=== PATIENT | female | born 1945 | race Two or more races ===

== ENCOUNTER 2020-05-16 10:55 | Observation (INO) | payer OTHER ==
[2020-05-16] MEDS ORDERED: SODIUM CHLORIDE 0.9% 1000 ML INFUS.BAG IV ONE (12:49)
[2020-05-16] MEDS ORDERED: METOCLOPRAMIDE HCL INJECTION 10 MG/2 ML VIAL IVPB ONE (12:49)
[2020-05-16] MEDS ORDERED: METOCLOPRAMIDE HCL INJECTION 10 MG/2 ML VIAL ONE (13:35)
[2020-05-16 13:58] LABS: INR 3.63 (0.83-1.09)
[2020-05-16 14:00] LABS: ACTIVATED PTT 41.2 SECONDS (25.2-36.5)
[2020-05-16 14:20] LABS: CHOLESTEROL 172 mg/dL (50-200)
[2020-05-16 14:21] LABS: TRIGLYCERIDES 222 mg/dL (0-150)
[2020-05-16 14:22] LABS: LDL CHOLESTEROL (ONLY SJRH) 90 mg/dL (5-100)
[2020-05-16 14:23] LABS: HDL CHOLESTEROL 55 mg/dL (40-60)
[2020-05-16] MEDS ORDERED: ASPIRIN 81 MG CHEWABLE TABLETS PO ONE (14:34)
[2020-05-16] MEDS ORDERED: ASPIRIN 325 MG ENTERIC COATED TABLET (FP) ONE (14:55)
[2020-05-16] MEDS ORDERED: ALBUTEROL SO4 HFA INHALER IH PRN (16:04)
[2020-05-16 17:05] LABS: CHLORIDE 106 mmol/L (98-107); POTASSIUM 4.3 mmol/L (3.5-5.1); SODIUM 141 mmol/L (136-145)
[2020-05-16 17:07] LABS: ANION GAP 8 MMOL/L (8-16); BLOOD UREA NITROGEN 30.5 mg/dL (7-18); CALCIUM 9.3 mg/dL (8.5-10.1); CO2 26 mmol/L (21-32)
[2020-05-16 17:08] LABS: ALBUMIN 3.6 g/dl (3.4-5.0); GLUCOSE,RANDOM 113 mg/dL (74-106)
[2020-05-16 17:11] LABS: CREATININE 1.5 mg/dL (0.55-1.3); SGOT/AST 17 U/L (15-37); SGPT/ALT 25 U/L (13-61)
[2020-05-16] MEDS ORDERED: MAGNESIUM SULF 50% (8.12 MEQ/2 ML-1 GM VIAL) IVPB ONE (17:11)
[2020-05-16 17:12] LABS: BILIRUBIN,TOTAL 0.4 mg/dL (0.2-1); TOT PROT 7.1 g/dl (6.4-8.2)
[2020-05-16 17:13] LABS: ALK PHOS 115 U/L (45-117)
[2020-05-16] MEDS ORDERED: MAGNESIUM SULFATE IN WATER 2 GM/50 ML IVPB IVPB ONE ×2 (17:15→18:15)
[2020-05-16 18:10] LABS: BASO % 0.6 % (0-2.0); EOS % 1.4 % (0-4.5); HEMATOCRIT 35.4 % (32.4-45.2); HEMOGLOBIN 11.9 GM/dL (10.7-15.3); LYMPH % 14.6 % (8-40); MCH 29.7 pg (25.7-33.7); MCHC 33.7 g/dl (32.0-36.0); MEAN CELL VOLUME 88.1 fl (80-96); MEAN PLT VOLUME 8.3 fl (7.5-11.1); MONO % 7.1 % (3.8-10.2); NEUT % 76.3 % (42.8-82.8); PLATELET COUNT 253 K/MM3 (134-434); RBC 4.01 M/mm3 (3.60-5.2); RDW 14.2 % (11.6-15.6); WHITE BLOOD COUNT 5.9 K/mm3 (4.0-10.0)
[2020-05-16 19:53] LABS: ERYTHROCYTE SEDIMENTATION RATE 26 mm/hr (0-30)
[2020-05-16] MEDS ORDERED: ATORVASTATIN CA 40 MG TABLET (FP) PO SCH (22:00)
[2020-05-16] MEDS ORDERED: HEPARIN NA (PORCINE) 5,000 UNITS/ML 1ML VIAL SQ SCH (22:00)
[2020-05-16] MEDS ORDERED: ATORVASTATIN CA 80 MG TABLET (FP) PO SCH (22:00)
[2020-05-17] MEDS: MONTELUKAST NA 10 MG TABLET PO SCH ×2 (00:25→21:02)
[2020-05-17] MEDS: BUDESONIDE/FORMETEROL FUMARATE 80/4.5 mcg INHALER IH SCH ×3 (01:38→21:02)
[2020-05-17] MEDS: BRIMONIDINE TARTRATE 0.2% OPHTHALMIC 5 ML BOTTLE OD SCH ×3 (01:38→21:02)
[2020-05-17 05:11] VITALS: BMI 30.4
[2020-05-17 07:06] LABS: INR 3.62 (0.83-1.09); PROTHROMBIN TIME (PATIENT) 42.9 SEC (9.7-13.0)
[2020-05-17 07:13] LABS: CHLORIDE 110 mmol/L (98-107); POTASSIUM 4.1 mmol/L (3.5-5.1); SODIUM 142 mmol/L (136-145)
[2020-05-17 07:16] LABS: CALCIUM 8.8 mg/dL (8.5-10.1)
[2020-05-17 07:17] LABS: ALBUMIN 3.1 g/dl (3.4-5.0); ANION GAP 6 MMOL/L (8-16); BLOOD UREA NITROGEN 29.3 mg/dL (7-18); CO2 26 mmol/L (21-32); GLUCOSE,RANDOM 102 mg/dL (74-106); MAGNESIUM 2.9 mg/dL (1.8-2.4)
[2020-05-17 07:20] LABS: PHOSPHOROUS 3.9 mg/dL (2.5-4.9); SGOT/AST 15 U/L (15-37); SGPT/ALT 20 U/L (13-61)
[2020-05-17 07:21] LABS: BILIRUBIN,TOTAL 0.4 mg/dL (0.2-1)
[2020-05-17 07:22] LABS: TOT PROT 6.1 g/dl (6.4-8.2)
[2020-05-17 07:23] LABS: ALK PHOS 104 U/L (45-117)
[2020-05-17 07:42] LABS: BASO % 0.6 % (0-2.0); EOS % 1.5 % (0-4.5); HEMATOCRIT 35.3 % (32.4-45.2); HEMOGLOBIN 11.7 GM/dL (10.7-15.3); LYMPH % 14.4 % (8-40); MCH 28.9 pg (25.7-33.7); MEAN CELL VOLUME 87.6 fl (80-96); MEAN PLT VOLUME 7.9 fl (7.5-11.1); MONO % 8.6 % (3.8-10.2); NEUT % 74.9 % (42.8-82.8); PLATELET COUNT 243 K/MM3 (134-434); RBC 4.03 M/mm3 (3.60-5.2); RDW 14.5 % (11.6-15.6); WHITE BLOOD COUNT 6.4 K/mm3 (4.0-10.0)
[2020-05-17 08:23] LABS: CREATININE 1.2 mg/dL (0.55-1.3)
[2020-05-17 08:25] LABS: CHOLESTEROL 152 mg/dL (50-200); TRIGLYCERIDES 222 mg/dL (0-150)
[2020-05-17 08:26] LABS: LDL CHOLESTEROL (ONLY SJRH) 75 mg/dL (5-100)
[2020-05-17 08:28] LABS: HDL CHOLESTEROL 46 mg/dL (40-60)
[2020-05-17 08:35] LABS: EPI CELLS 9 /uL (0-25.1); HYALINE CASTS 0 /uL (0-3.1); PH,URINE 5.5 (5.0-8.0); URINE APPEARANCE CLEAR; URINE BACTERIA 424 /uL (0-1359); URINE BILIRUBIN NEGATIVE (NEGATIVE); URINE COLOR YELLOW; URINE GLUCOSE (UA) NEGATIVE (NEGATIVE); URINE KETONE NEGATIVE (NEGATIVE); URINE LEUK ESTERASE NEGATIVE (NEGATIVE); URINE NITRITE NEGATIVE (NEGATIVE); URINE PROTEIN NEGATIVE (NEGATIVE); URINE RBC 4 /uL (0-23.9); URINE UROBILINOGEN 0.2 mg/dL (0.2-1.0); URINE WBC 34 /uL (0-25.8)
[2020-05-17] MEDS: ASPIRIN COATED 81 MG TABLET.EC PO SCH (10:05)
[2020-05-17] MEDS: CHOLECALCIFEROL (VIT D3) 1,000 UNIT (25 MCG) TABLET PO SCH (10:05)
[2020-05-17] MEDS: PANTOPRAZOLE 40 MG TABLET PO SCH (10:05)
[2020-05-17] MEDS: ACETAMINOPHEN 325 MG TABLET (FP) PO PRN ×2 (10:05→17:44)
[2020-05-17] MEDS ORDERED: FUROSEMIDE 40 MG TABLET (FP) PO SCH (14:00)
[2020-05-17] MEDS: TIOTROPIUM BROMIDE 2.5 MCG (SPIRIVA) RESPIMAT INHALER IH SCH (17:48)
[2020-05-17] MEDS ORDERED: PT OWN MED DRAWER 7, Y5N ONE (20:58)
[2020-05-17] MEDS: CARVEDILOL 12.5 MG TABLET (FP) PO SCH (21:02)
[2020-05-17] MEDS ORDERED: ATORVASTATIN CA 40 MG TABLET (FP) PO SCH (22:00)
[2020-05-18 06:55] LABS: BASO % 0.7 % (0-2.0); EOS % 2.3 % (0-4.5); HEMATOCRIT 33.3 % (32.4-45.2); HEMOGLOBIN 11.1 GM/dL (10.7-15.3); LYMPH % 16.5 % (8-40); MCH 29.4 pg (25.7-33.7); MCHC 33.4 g/dl (32.0-36.0); MONO % 8.8 % (3.8-10.2); NEUT % 71.7 % (42.8-82.8); PLATELET COUNT 239 K/MM3 (134-434); RBC 3.79 M/mm3 (3.60-5.2); RDW 14.7 % (11.6-15.6); WHITE BLOOD COUNT 5.1 K/mm3 (4.0-10.0)
[2020-05-18 06:57] LABS: INR 2.66 (0.83-1.09); PROTHROMBIN TIME (PATIENT) 31.3 SEC (9.7-13.0)
[2020-05-18 07:10] LABS: POTASSIUM 4.1 mmol/L (3.5-5.1)
[2020-05-18 07:15] LABS: ALBUMIN 2.9 g/dl (3.4-5.0); BLOOD UREA NITROGEN 25.3 mg/dL (7-18); MAGNESIUM 2.4 mg/dL (1.8-2.4)
[2020-05-18 07:17] LABS: CALCIUM 8.7 mg/dL (8.5-10.1)
[2020-05-18 07:18] LABS: CREATININE 1.3 mg/dL (0.55-1.3)
[2020-05-18 07:19] LABS: BILIRUBIN,TOTAL 0.7 mg/dL (0.2-1)
[2020-05-18 07:20] LABS: TOT PROT 5.9 g/dl (6.4-8.2)
[2020-05-18] MEDS ORDERED: MULTIVITAMINS (DAILY MVI) TABLET (FP) PO SCH (10:00)
[2020-05-18] MEDS ORDERED: AMIODARONE HCL 200 MG TABLET PO SCH (10:00)
[2020-05-18] MEDS ORDERED: FUROSEMIDE 20 MG TABLET (FP) PO SCH (10:00)
[2020-05-18] MEDS ORDERED: SPIRONOLACTONE 25 MG TABLET PO SCH (10:00)
[2020-05-18] MEDS: ASPIRIN COATED 81 MG TABLET.EC PO SCH (10:05)
[2020-05-18] MEDS: ACETAMINOPHEN 325 MG TABLET (FP) PO PRN (10:05)
[2020-05-18] MEDS: CARVEDILOL 12.5 MG TABLET (FP) PO SCH (10:05)
[2020-05-18] MEDS: PANTOPRAZOLE 40 MG TABLET PO SCH (10:05)
[2020-05-18] MEDS: CHOLECALCIFEROL (VIT D3) 1,000 UNIT (25 MCG) TABLET PO SCH (10:06)
[2020-05-18] MEDS: TIOTROPIUM BROMIDE 2.5 MCG (SPIRIVA) RESPIMAT INHALER IH SCH (10:08)
[2020-05-18] MEDS: BRIMONIDINE TARTRATE 0.2% OPHTHALMIC 5 ML BOTTLE OD SCH (10:08)
[2020-05-18] MEDS: BUDESONIDE/FORMETEROL FUMARATE 80/4.5 mcg INHALER IH SCH (10:08)
[2020-05-18 16:21] VITALS: BP 151/78; PULSE 67; TEMP 98.1
[2020-05-19] MEDS ORDERED: FUROSEMIDE 40 MG TABLET (FP) PO SCH (10:00)
== END 2020-05-18 17:26 | disposition home health service (06) ==
LOC: JER 10:55 → JERBED 14:33 → UNDOADMOB 14:33 → INTOOBSV 14:33 → JERBED 21:54 → JICU 21:54 → JERBED 05-17 10:04
PROVIDERS: ATTEND Nurse Practitioner Family
PROC: 3E033GC Introduction of Other Therapeutic Substance into Peripheral Vein, Percutaneous Approach (ICD-10-PCS; principal; 2020-05-17)
PROC: 3E0337Z Introduction of Electrolytic and Water Balance Substance into Peripheral Vein, Percutaneous Approach (ICD-10-PCS; 2020-05-17)
DX: I63.9 Cerebral infarction, unspecified (principal); R73.03 Prediabetes; E78.5 Hyperlipidemia, unspecified; Z95.2 Presence of prosthetic heart valve; Z98.890 Other specified postprocedural states; Z86.79 Personal history of other diseases of the circulatory system; R79.1 Abnormal coagulation profile; Z20.828 Contact with and (suspected) exposure to other viral communicable diseases; I48.91 Unspecified atrial fibrillation; Z79.01 Long term (current) use of anticoagulants; Z23 Encounter for immunization; Z88.8 Allergy status to other drugs, medicaments and biological substances; Z88.6 Allergy status to analgesic agent; J44.9 Chronic obstructive pulmonary disease, unspecified; K21.9 Gastro-esophageal reflux disease without esophagitis; M62.81 Muscle weakness (generalized); R20.2 Paresthesia of skin
CPT/HCPCS: 36415; 70450-TC; 70551-TC; 80053; 80061; 81003; 82550; 82607; 83036; 83721; 83735; 84100; 84443; 84484; 85025; 85610; 85651; 85730; 86140; 86850; 86900; 86901; 87040; 87086; 93005; 93010; 93306-TC; 93880-TC; 96361; 96365; 96375; 97116-GP; 97161-GP; 99285-25; C9803; G0378; U0003

== ENCOUNTER 2020-08-03 10:07 | Emergency (ER) | payer OTHER | END 2020-08-03 10:38 | disposition home or self-care (01) | LOC: JVIRT 10:07 | DX: Z11.52 Encounter for screening for COVID-19 (principal) | CPT/HCPCS: C9803; G2012-GT; U0003 ==

== ENCOUNTER 2020-08-18 13:20 | Emergency (ER) | payer OTHER | END 2020-08-18 15:14 | disposition home or self-care (01) | LOC: JVIRT 13:20 | DX: Z20.822 Contact with and (suspected) exposure to COVID-19 (principal) | CPT/HCPCS: C9803; G2012-GT; U0003 ==

== ENCOUNTER 2021-04-17 12:41 | Observation (INO) | payer OTHER ==
[2021-04-17] MEDS ORDERED: MECLIZINE HCL 25 MG TABLET (FP) PO ONE ×2 (13:15→15:41)
[2021-04-17] MEDS ORDERED: MECLIZINE HCL 25 MG TABLET (FP) ONE ×2 (13:52→16:28)
[2021-04-17 14:07] LABS: BASO % 0.3 % (0-2.0); EOS % 1.4 % (0-4.5); HEMATOCRIT 35.1 % (32.4-45.2); HEMOGLOBIN 11.8 GM/dL (10.7-15.3); MCH 27.1 pg (25.7-33.7); MCHC 33.6 g/dl (32.0-36.0); MEAN CELL VOLUME 80.6 fl (80-96); MEAN PLT VOLUME 7.7 fl (7.5-11.1); MONO % 7.5 % (3.8-10.2); NEUT % 76.8 % (42.8-82.8); PLATELET COUNT 316 10^3/uL (134-434); RBC 4.36 M/mm3 (3.60-5.2); RDW 16.2 % (11.6-15.6); WHITE BLOOD COUNT 5.6 K/mm3 (4.0-10.0)
[2021-04-17 14:12] LABS: EPI CELLS 5 /uL (0-25.1); HYALINE CASTS 0 /uL (0-3.1); PH,URINE 5.5 (5.0-8.0); URINE APPEARANCE CLEAR; URINE BACTERIA 457 /uL (0-1359); URINE BILIRUBIN NEGATIVE (NEGATIVE); URINE COLOR YELLOW; URINE GLUCOSE (UA) NEGATIVE (NEGATIVE); URINE KETONE NEGATIVE (NEGATIVE); URINE LEUK ESTERASE NEGATIVE (NEGATIVE); URINE NITRITE NEGATIVE (NEGATIVE); URINE PROTEIN NEGATIVE (NEGATIVE); URINE RBC 9 /uL (0-23.9); URINE UROBILINOGEN 0.2 mg/dL (0.2-1.0); URINE WBC 7 /uL (0-25.8)
[2021-04-17 14:22] LABS: INR 2.86 (0.83-1.09); PROTHROMBIN TIME (PATIENT) 35.5 SEC (9.7-13.0)
[2021-04-17 14:24] LABS: ACTIVATED PTT 37.7 SECONDS (25.2-36.5)
[2021-04-17 14:28] LABS: CALCIUM 9.1 mg/dL (8.5-10.1)
[2021-04-17 14:29] LABS: ALBUMIN 3.3 g/dl (3.4-5.0); BLOOD UREA NITROGEN 21.1 mg/dL (7-18)
[2021-04-17 14:32] LABS: CREATININE 1.2 mg/dL (0.55-1.3)
[2021-04-17 14:34] LABS: BILIRUBIN,TOTAL 0.5 mg/dL (0.2-1); TOT PROT 7.2 g/dl (6.4-8.2)
[2021-04-17] MEDS ORDERED: diazePAM 2 MG TABLET PO ONE (15:54)
[2021-04-17] MEDS ORDERED: diazePAM 2 MG TABLET ONE (16:28)
[2021-04-17] MEDS ORDERED: ACETAMINOPHEN 325 MG TABLET (FP) PO ONE (17:30)
[2021-04-17] MEDS ORDERED: WARFARIN NA 5 MG TABLET PO ONE (18:39)
[2021-04-17] MEDS ORDERED: PANTOPRAZOLE 40 MG TABLET PO ONE (18:39)
[2021-04-17] MEDS ORDERED: ATORVASTATIN CA 40 MG TABLET (FP) PO ONE (18:40)
[2021-04-17] MEDS ORDERED: CARVEDILOL 12.5 MG TABLET (FP) PO ONE (18:41)
[2021-04-17] MEDS ORDERED: ACETAMINOPHEN 325 MG TABLET (FP) ONE (18:53)
[2021-04-17] MEDS ORDERED: ATORVASTATIN CA 40 MG TABLET (FP) ONE (18:54)
[2021-04-17] MEDS ORDERED: CARVEDILOL 12.5 MG TABLET (FP) ONE (18:54)
[2021-04-17] MEDS ORDERED: WARFARIN NA 5 MG TABLET ONE (18:54)
[2021-04-17] MEDS ORDERED: PANTOPRAZOLE 40 MG TABLET ONE (18:54)
[2021-04-18 00:16] VITALS: BMI 24.9
[2021-04-18] MEDS ORDERED: PT OWN MED DRAWER 7, Y5N ONE ×2 (09:23→10:54)
[2021-04-18] MEDS: ASPIRIN COATED 81 MG TABLET.EC PO SCH (09:41)
[2021-04-18] MEDS ORDERED: FLU VACC QS2021-22(6MOS UP)/PF 60 MCG/0.5 ML SYRINGE IM ONE (10:00)
[2021-04-18] MEDS ORDERED: ASPIRIN COATED 81 MG TABLET.EC PO SCH (10:00)
[2021-04-18] MEDS ORDERED: TIOTROPIUM BROMIDE 2.5 MCG (SPIRIVA) RESPIMAT INHALER IH SCH ×2 (10:00)
[2021-04-18] MEDS ORDERED: FLUTICASONE/UMECLIDIN/VILANTER(100-62.5-25 TRELEGY ELLIPTA) INAHLER IH SCH (10:00)
[2021-04-18] MEDS: FLUTICASONE/UMECLIDIN/VILANTER(100-62.5-25 TRELEGY ELLIPTA) INAHLER IH SCH (10:56)
[2021-04-18] MEDS: BUDESONIDE/FORMETEROL FUMARATE 80/4.5 mcg INHALER IH SCH ×3 (10:56→21:21)
[2021-04-18] MEDS: CARVEDILOL 12.5 MG TABLET (FP) PO SCH ×2 (10:56→21:20)
[2021-04-18] MEDS ORDERED: WARFARIN NA 5 MG TABLET PO SCH (18:00)
[2021-04-18] MEDS ORDERED: MONTELUKAST NA 10 MG TABLET PO SCH (22:00)
[2021-04-18] MEDS ORDERED: ATORVASTATIN CA 40 MG TABLET (FP) PO SCH (22:00)
[2021-04-19 07:26] LABS: BASO % 0.4 % (0-2.0); EOS % 2.7 % (0-4.5); HEMATOCRIT 32.8 % (32.4-45.2); MCHC 33.6 g/dl (32.0-36.0); MEAN CELL VOLUME 80.3 fl (80-96); MEAN PLT VOLUME 7.5 fl (7.5-11.1); MONO % 7.4 % (3.8-10.2); NEUT % 75.5 % (42.8-82.8); PLATELET COUNT 266 10^3/uL (134-434); RBC 4.08 M/mm3 (3.60-5.2); RDW 16.2 % (11.6-15.6); WHITE BLOOD COUNT 5.9 K/mm3 (4.0-10.0)
[2021-04-19 07:34] LABS: INR 3.51 (0.83-1.09); PROTHROMBIN TIME (PATIENT) 43.7 SEC (9.7-13.0)
[2021-04-19 07:57] LABS: ALBUMIN 2.7 g/dl (3.4-5.0); BLOOD UREA NITROGEN 25.1 mg/dL (7-18); CALCIUM 8.9 mg/dL (8.5-10.1); MAGNESIUM 2.4 mg/dL (1.8-2.4)
[2021-04-19 08:00] LABS: CREATININE 1.1 mg/dL (0.55-1.3)
[2021-04-19 08:04] LABS: BILIRUBIN,TOTAL 0.3 mg/dL (0.2-1); TOT PROT 6.1 g/dl (6.4-8.2)
[2021-04-19] MEDS ORDERED: PT OWN MED DRAWER 7, Y5N ONE (09:19)
[2021-04-19] MEDS: CARVEDILOL 12.5 MG TABLET (FP) PO SCH (09:25)
[2021-04-19] MEDS: FLUTICASONE/UMECLIDIN/VILANTER(100-62.5-25 TRELEGY ELLIPTA) INAHLER IH SCH (09:25)
[2021-04-19] MEDS: ASPIRIN COATED 81 MG TABLET.EC PO SCH (09:25)
[2021-04-19] MEDS: BUDESONIDE/FORMETEROL FUMARATE 80/4.5 mcg INHALER IH SCH (09:33)
[2021-04-19] MEDS ORDERED: ACETAMINOPHEN 325 MG TABLET (FP) PO PRN (10:23)
[2021-04-19] MEDS ORDERED: LOSARTAN POTASSIUM 50 MG TABLET PO SCH (12:00)
[2021-04-19 14:00] VITALS: BP 148/58; PULSE 67; TEMP 97.8
== END 2021-04-19 18:21 | disposition home or self-care (01) ==
LOC: JER 12:41 → JERBED 17:25 → INTOOBSV 17:25 → UNDOADMOB 17:25 → J2W 23:55 → JERBED 23:55 → J2W 04-18 09:22 → J4S 04-18 16:55
PROC: 3E0234Z Introduction of Serum, Toxoid and Vaccine into Muscle, Percutaneous Approach (ICD-10-PCS; principal; 2021-04-18)
DX: I11.0 Hypertensive heart disease with heart failure (principal); Z95.2 Presence of prosthetic heart valve; I10 Essential (primary) hypertension; E78.5 Hyperlipidemia, unspecified; I73.9 Peripheral vascular disease, unspecified; D86.89 Sarcoidosis of other sites; K21.9 Gastro-esophageal reflux disease without esophagitis; J44.9 Chronic obstructive pulmonary disease, unspecified; Z88.6 Allergy status to analgesic agent; Z88.8 Allergy status to other drugs, medicaments and biological substances; Z87.891 Personal history of nicotine dependence; R01.1 Cardiac murmur, unspecified; Z23 Encounter for immunization
CPT/HCPCS: 36415; 70450-TC; 80053; 81003; 83735; 84100; 85025; 85610; 85730; 87086; 87186; 90686; 93005; 93010; 93306-TC; 96372; 97116-GP; 97161-GP; 99285-25; C9803; G0378; U0003; U0005

== ENCOUNTER 2021-12-03 16:50 | Emergency (ER) | payer OTHER ==
[2021-12-03 17:01] VITALS: BP 135/81; PULSE 74; TEMP 97.9; BMI 20.9
[2021-12-03] MEDS ORDERED: DIPHTH,PERTUSS(ACELL),TET 0.5 ML DISP.SYRIN IM ONE ×2 (17:25→17:53)
== END 2021-12-03 18:23 | disposition home or self-care (01) ==
LOC: JERFT 16:50
PROC: 3E0234Z Introduction of Serum, Toxoid and Vaccine into Muscle, Percutaneous Approach (ICD-10-PCS; principal; 2021-12-03)
DX: S61.201A Unspecified open wound of left index finger without damage to nail, initial encounter (principal); W26.0XXA Contact with knife, initial encounter; Y93.G1 Activity, food preparation and clean up
CPT/HCPCS: 90471; 90715; 99284-25